=== PATIENT | female | born 1955 | race Caucasian/White ===

== ENCOUNTER 2021-12-09 12:42 | Emergency (ER) | payer BC ==
[~2021-12-09] VITALS: Ht 162.6 cm; Wt 78.0 kg
[~2021-12-09 12:42] MED LIST: CLONIDINE HCL0.1 MG; CRUTCH1 EACH; ECHINACEA HERB380 MG PO; FLUOXETINE HCL20 MG PO; IBUPROFEN800 MG PO; LEVOTHYROXINE150 MCG PO; MULTIVITAMINS1 EAC7 PO; OMEPRAZOLE20 MG PO; PERCOCET 5-3251 EACH PO
[2021-12-09] MEDS ORDERED: ATORVASTATIN CA40 MG PO (13:07)
[2021-12-09] MEDS ORDERED: METOPROLOL SUCC25 MG PO (13:07)
[2021-12-09] MEDS ORDERED: VENLAFAXINE H37.5 M1 PO (13:08)
[2021-12-09] MEDS ORDERED: POTASSIUM CHLO10 MEQ PO (13:08)
[2021-12-09] MEDS ORDERED: LISINOPRIL-HCT1 EAC1 PO (13:08)
[2021-12-09] MEDS ORDERED: PANTOPRAZOLE SO40 MG PO (16:28)
== END 2021-12-09 16:47 | disposition home or self-care (01) ==
LOC: ED 12:42
DX: R10.12 Left upper quadrant pain (principal); R10.13 Epigastric pain; Z87.891 Personal history of nicotine dependence; Z88.5 Allergy status to narcotic agent; Z79.899 Other long term (current) drug therapy
CPT/HCPCS: 36415; 74177; 80053; 83690; 85025; 96366; 96375; 99284-25; C9113; J3411; J7030; Q9967

== ENCOUNTER 2022-06-11 12:54 | Emergency (ER) | payer BC ==
[~2022-06-11] VITALS: Ht 162.6 cm; Wt 73.5 kg
[~2022-06-11 12:54] MED LIST changes: +ATORVASTATIN CA40 MG PO; +LISINOPRIL-HCT1 EAC1 PO; +METOPROLOL SUCC25 MG PO; +PANTOPRAZOLE SO40 MG PO; +POTASSIUM CHLO10 MEQ PO; +VENLAFAXINE H37.5 M1 PO
--- NOTE | 2022-06-13 13:55 | EKG ---
[facility] [address] [facility] [place] [address] Signed Sinus rhythm with occasional premature ventricular complexes Indeterminate axis Right bundle branch block Abnormal ECG No previous ECGs available Confirmed by SERGIO EVANS MD ([id number]) on 06/13/2022 1:55:26 PM Electronically Signed By: SERGIO EVANS MD 06/13/22 1355 PATIENT NAME: BRAXTON CRUZ JB Electrocardiogram DATE OF : 55 PHYSICIAN: SERGIO EVANS MD REPORT #: [id number] REPORT IS CONFIDENTIAL AND NOT TO BE RELEASED WITHOUT AUTHORIZATION
--- NOTE | 2022-06-13 13:55 | EKG ---
[facility] [address] [facility] [place] [address] Signed Normal sinus rhythm Indeterminate axis Right bundle branch block Abnormal ECG When compared with ECG of 11-JUN-2022 14:50, (Unconfirmed) premature ventricular complexes are no longer present Confirmed by SERGIO EVANS MD ([id number]) on 06/13/2022 1:55:29 PM Electronically Signed By: SERGIO EVANS MD 06/13/22 1355 PATIENT NAME: NANCYBRAXTONSANJEEV MUHAMMAD Electrocardiogram DATE OF : 55 PHYSICIAN: SERGIO EVANS MD REPORT #: [id number] REPORT IS CONFIDENTIAL AND NOT TO BE RELEASED WITHOUT AUTHORIZATION
== END 2022-06-11 19:47 | disposition home or self-care (01) ==
LOC: ED 12:54
DX: F10.10 Alcohol abuse, uncomplicated (principal); Z91.199 Patient's noncompliance with other medical treatment and regimen due to unspecified reason; I10 Essential (primary) hypertension; E78.00 Pure hypercholesterolemia, unspecified; Z87.891 Personal history of nicotine dependence; Z88.5 Allergy status to narcotic agent; Z79.899 Other long term (current) drug therapy
CPT/HCPCS: 36415; 51701; 51798; 70450; 71045; 80053; 81003; 84484; 85025; 93005; 93010; 99284-25; G0480; J2060; J3411; J7030

== ENCOUNTER 2023-06-04 10:48 | Emergency (ER) | payer SELFPAY ==
[~2023-06-04] VITALS: Ht 162.6 cm; Wt 75.8 kg
[2023-06-04] MEDS ORDERED: BLACK COHOSH40 M1 PO (11:07)
[2023-06-04] MEDS ORDERED: AMLODIPINE BESYL5 MG PO (11:07)
[2023-06-04] MEDS ORDERED: VITAMIN C100 MG PO (11:08)
[2023-06-04] MEDS ORDERED: CELEBREX200 MG PO (11:48)
[2023-06-04] MEDS ORDERED: METHYLPREDNISOLO4 M1 PO (11:48)
[2023-06-04] MEDS ORDERED: CYCLOBENZAPRINE10 MG PO (11:48)
[2023-06-04 12:05] VITALS: BP 119/65
== END 2023-06-04 12:05 | disposition home or self-care (01) ==
LOC: ED 10:48
DX: M54.41 Lumbago with sciatica, right side (principal); M47.815 Spondylosis without myelopathy or radiculopathy, thoracolumbar region; I10 Essential (primary) hypertension; E03.9 Hypothyroidism, unspecified; Z87.891 Personal history of nicotine dependence; Z88.5 Allergy status to narcotic agent; Z79.899 Other long term (current) drug therapy
CPT/HCPCS: 72100; 96372; 99283-25; J1885; J3360